=== PATIENT | female | born 1985 | race African-American/Black ===

== ENCOUNTER 2017-02-08 17:40 | Emergency (ER) | payer MEDICAID ==
[~2017-02-08] VITALS: Ht 160 cm; Wt 63.5 kg
[~2017-02-08 17:40] MED LIST: DOXY100T PO; FLAG375C PO; MOBI15TA PO; ROBA750T PO
[2017-02-08 17:41] VITALS: BP 155/77; PULSE 87; RESP 15; TEMP 98.2; O2SAT 98
[2017-02-08 18:11] LABS: AUTOMATED NEUTROPHIL # 6.9 TH/MM3 (1.8-7.7); BASOPHIL # 0.1 TH/MM3 (0-0.2); BASOPHIL % 0.9 % (0.0-2.0); BLOOD, URINE MOD (NEG); COMMENT (UR) CULT NOT INDICATED; CULTURE IF INDICATED CULT NOT INDICATED; EOSINOPHIL # 0.2 TH/MM3 (0-0.4); EOSINOPHIL % 1.7 % (0.0-4.0); GLUCOSE,URINE NEG (NEG); HEMATOCRIT 40.3 % (35.0-46.0); HEMO FLAGS DIFF FINAL; KETONE, URINE NEG (NEG); LYMPH % 31.4 % (9.0-44.0); LYMPHOCYTE # 3.6 TH/MM3 (1.0-4.8); MEAN CELL VOLUME 94.2 FL (80.0-100.0); MEAN CORPUSCULAR HEMOGLOBIN 31.3 PG (27.0-34.0); MEAN CORPUSCULAR HGB CONC 33.3 % (32.0-36.0); MONO % 6.1 % (0.0-8.0); MUCUS URINE FEW /lpf (OCC); NEUT % 59.9 % (16.0-70.0); NITRITE,URINE NEG (NEG); PLATELET COUNT 339 TH/MM3 (150-450); RED BLOOD COUNT 4.28 MIL/MM3 (4.00-5.30); RED CELL DISTRIBUTION WIDTH 13.4 % (11.6-17.2); URINE COLOR YELLOW (YELLW/STRAW); WHITE BLOOD COUNT 11.5 TH/MM3 (4.0-11.0)
[2017-02-08 18:27] LABS: BETA HCG QUANT 266 MIU/ML (0-5)
--- NOTE | 2017-02-08 18:33 | PD ---
HPI Chief Complaint: [employer] Problem/Complaint Time Seen by Provider: 18:25 Travel History International Travel<30 days: No Contact w/Intl Traveler<30days: No Traveled to known affect area: No History of Present Illness HPI Patient was in complaining of light pink spotting and she is approximately 7 weeks . Patient symptoms began yesterday and became more constant today. Patient states she's had to wear pantiliners and changes about every time she goes to the bathroom but states is only very light small amounts of pinkish discharge that has her concerned. Patient is A0. Patient denies any abdominal pain, back pain, dysuria, loss change in bowel or bladder, chest pain, fevers, shortness of breath, or other concerns. 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 PFSH Past Medical History Asthma: No Blood Disorders: No Anxiety: Yes (patient states when she went to physician it could cause her headaches) Depression: Yes Cancer: No Cardiovascular Problems: No Chest Pain: Yes (occasionally pt stated) COPD: No Diabetes: No Diminished Hearing: No Endocrine: No Genitourinary: No Headaches: Yes Immune Disorder: No Musculoskeletal: Yes Neurologic: Yes Reproductive: No Respiratory: No Immunizations Current: No Sickle Cell Disease: No Sleep Apnea: No Thyroid Disease: No ?: : 7 Para: 3 Miscarriage: 2 : 1 Social History Alcohol Use: Yes (SOCIALLY ) Tobacco Use: No Substance Use: No Allergies-Medications (Allergen,Severity, Reaction): Coded Allergies: No Known Allergies (Verified , 02/08/17) Reported Meds & Prescriptions Reported Meds & Active Scripts Active No Active Prescriptions or Reported Medications Review of Systems Except as stated in HPI: all other systems reviewed are Neg Physical Exam Narrative GENERAL: Well-developed, overly nourished, in no acute distress, and non-ill appearing. SKIN: Focused skin assessment warm and dry. HEAD: Atraumatic. Normocephalic. EYES: Pupils equal and round. EOMI. No scleral icterus. No injection or drainage. ENT: No nasal bleeding or discharge. Mucous membranes pink and moist. NECK: Trachea midline. Supple. No nuclear rigidity. CARDIOVASCULAR: Regular rate and rhythm. No murmur appreciated. RESPIRATORY: No accessory muscle use. No respiratory distress. Clear to auscultation. Breath sounds equal bilaterally. GASTROINTESTINAL: Abdomen soft, non-tender, nondistended, and no guarding. Hepatic and splenic margins not palpable. Normal bowel sounds 4. No pulsatile mass. GENITOURINARY: Normal external genitalia without lesions or erythema. Vaginal vault with blood. Cervical os was slightly open with bloody drainage. No cervical motion tenderness. Uterus nontender Bilateral adnexa nontender without masses. MUSCULOSKELETAL: No obvious deformities. No clubbing. No cyanosis. No edema. Full range of motion. NEUROLOGICAL: Awake and alert. No obvious cranial nerve deficits. Motor grossly within normal limits. Normal speech. PSYCHIATRIC: Appropriate mood and affect; insight and judgment normal. Data Data Last Documented VS Vital Signs Date Time Temp Pulse Resp B/P (MAP) Pulse Ox O2 Delivery O2 Flow Rate FiO2 02/08/17 21:45 02/08/17 17:41 98.2 87 15 98 Orders Orders Complete Blood Count With Diff (02/08/17 17:45) Ed Urine Pregnancytest Poc (02/08/17 17:45) Beta Hcg (Quant/Titer) (02/08/17 17:45) Urinalysis - C+S If Indicated (02/08/17 17:45) Us Pelvis (Ques Pr/Ect)W Trans (02/08/17 ) Labs Laboratory Tests Test 02/08/17 17:57 White Blood Count 11.5 TH/MM3 Red Blood Count 4.28 MIL/MM3 Hemoglobin 13.4 GM/DL Hematocrit 40.3 % Mean Corpuscular Volume 94.2 FL Mean Corpuscular Hemoglobin 31.3 PG Mean Corpuscular Hemoglobin Concent 33.3 % Red Cell Distribution Width 13.4 % Platelet Count 339 TH/MM3 Mean Platelet Volume 7.8 FL Neutrophils (%) (Auto) 59.9 % Lymphocytes (%) (Auto) 31.4 % Monocytes (%) (Auto) 6.1 % Eosinophils (%) (Auto) 1.7 % Basophils (%) (Auto) 0.9 % Neutrophils # (Auto) 6.9 TH/MM3 Lymphocytes # (Auto) 3.6 TH/MM3 Monocytes # (Auto) 0.7 TH/MM3 Eosinophils # (Auto) 0.2 TH/MM3 Basophils # (Auto) 0.1 TH/MM3 CBC Comment DIFF FINAL Differential Comment Urine Color YELLOW Urine Turbidity CLEAR Urine pH 6.0 Urine Specific [place] 1.030 Urine Protein TRACE mg/dL Urine Glucose (UA) NEG mg/dL Urine Ketones NEG mg/dL Urine Occult Blood MOD Urine Nitrite NEG Urine Bilirubin NEG Urine Urobilinogen LESS THAN 2.0 MG/DL Urine Leukocyte Esterase NEG Urine RBC LESS THAN 1 /hpf Urine WBC 1 /hpf Urine Mucus FEW /lpf Microscopic Urinalysis Comment CULT NOT INDICATED Human Chorionic Gonadotropin, Quant 266 MIU/ML MDM Medical Decision Making Medical Screen Exam Complete: Yes Emergency Medical Condition: Yes Medical Record Reviewed: Yes Interpretation(s) Ultrasound read by the radiologist shows: Intrauterine cannot be confirmed. Prominent amount of free fluid in the cul-de-sac. Cystic area in the left ovary. Cannot exclude ectopic . Differential Diagnosis Threatened , ectopic , inevitable , anemia, UTI, other Narrative Course Patient presented with vaginal bleeding and the test was positive. Ultrasound was performed and there is no obvious evidence of a uterine . However the quantitative B-HcG was low and therefore eludes to an early not able to be seen by sonography. There is no evidence to suggest obvious ectopic or ruptured ectopic , nor cervicitis, PID or torsion at this time. There was no evidence to support colitis, diverticulitis, obstruction, abdominal or femoral herniation, volvulus, early appendicitis, or hernial incarceration or strangulation at this time. Patient is stable and no clinical evidence of anemia. Medical records reviewed show patient is A positive blood type. There is no RH incompatibility. The patient therefore can be released at this time with acute follow up. Patient was warned on the possibility of an ectopic and to return IMMEDIATELY if the pain and/ or bleeding worsened, felt faint or passed out. The patient was instructed to follow up with OB or return here within 2 days. She was given ectopic warnings and warnings to return if bleeding worsened, felt faint or passed out, fever, worsening pain, inability to tolerate fluids, or as needed. The patient agreed with plan and stated will follow up as instructed. Patient in no obvious distress upon re-evaluation. All pertinent laboratory/ Radiology result(s) discussed with patient. Discussed patient with Dr. Alcala prior to discharge, who is in agreement with plan of care and disposition. Any questions/concerns in reference to patient diagnosis/ condition discussed and clarified prior to patient's discharge. Reinforced sheer importance of close follow up with patient's OB or return here in 48 hours for recheck. Instructed patient to return to ED immediately, if symptoms return/worsen. Patient showed understanding of above instructions. Further instructions and recommendations were detailed in discharge paperwork. Patient ambulated without difficulty out of ED at discharge. Diagnosis Primary Impression: Threatened miscarriage in early Patient Instructions: General Instructions, Threatened Miscarriage (ED) Additional Instructions: Follow-up with your OB or return here in 48 hours for recheck. Return to the emergency department if symptoms get worse. Scripts No Active Prescriptions or Reported Meds Disposition: 01 DISCHARGE HOME Condition: Stable Ishmael Reyez Feb 08, 2017 18:33
--- NOTE | 2017-02-08 20:56 | RADRPT ---
EXAM DATE/TIME: 02/08/2017 19:18 [facility] COMPARISON: No previous studies available for comparison. INDICATIONS : Ectopic. LAB(S): Beta-hC MEDICAL HISTORY : Vaginal bleeding. Anxiety. Headache. UTI. Dyspnea. SURGICAL HISTORY : None. ENCOUNTER: Initial ACUITY: 2 days PAIN SCORE: 3/10 LOCATION: Bilateral pelvis MEASUREMENTS: UTERUS: 10.0 x 6.3 x 6.4 cm RIGHT OVARY: 3.7 x 2.6 x 1.9 cm LEFT OVARY: 4.7 x 2.3 x 2.2 cm FINDINGS: There is a cystic/saccular structure seen in the endometrium which measures 5.4 x 2.1 x 2.3 cm. This cystic area is empty an anechoic. No evidence of yolk sac no pole identified. No increased f low seen about this area on color Doppler. Both ovaries are identified. There are 2 cystic structur es seen in the left ovary measuring 2.5 x 1.8 x 2.0 cm and 1.3 x 1.1 x 1.0 cm. The largest cyst is o nly seen on the transabdominal scan. There is a significant amount of fluid in the cul-de-sac. CONCLUSION: Intrauterine cannot be confirmed. Prominent amount of free fluid in the cul-de-sac. Cysti c area in the left ovary. Cannot exclude ectopic . Nolan Damon MD on February 08, 2017 at 20:52 Board Certified Radiologist. This report was verified electronically.
== END 2017-02-08 22:10 | disposition home or self-care (01) ==
LOC: NEPE 17:40
DX: O20.0 Threatened abortion (principal)
CPT/HCPCS: 76700; 76817; 81001; 84702; 84703; 85025; 99284